=== PATIENT | male | born 1990 | race Caucasian/White ===

== ENCOUNTER → 2016-11-13 | Day surgery (SDC) | END | disposition home or self-care (01) | DX: J34.2 Deviated nasal septum (principal); J34.3 Hypertrophy of nasal turbinates; G47.33 Obstructive sleep apnea (adult) (pediatric); J35.1 Hypertrophy of tonsils; K14.8 Other diseases of tongue | CPT/HCPCS: 30140; 30520; 41530; 42145; 88304; J1100; J1170; J2250; J2405; J2710; J3010; Z7512; Z7610 ==